=== PATIENT | female | born 1935 | race Caucasian/White ===

== ENCOUNTER → 2017-03-26 | Outpatient (CLI) | payer MEDICARE ==
[~2017-03-26] MED LIST: CEPH500 PO; CHOL10002 PO; CLOP75 PO; CODLIVC PO; CRANASSURE; CYAN100 PO; DOCU100 PO; DONE10 PO; LANS30EC PO; LEVOTHYROXINE; LEVSOD50 PO; OMEP20ER PO; PANT20 PO; THYROID; TRAM50 PO
== END ==
LOC: LAB 11:34
DX: R35.8 Other polyuria (principal)
CPT/HCPCS: 87077; 87086; 87186

== ENCOUNTER 2017-12-18 20:39 | Emergency (ER) | payer MEDICARE ==
[~2017-12-18] VITALS: Ht 160 cm; Wt 52.2 kg
[~2017-12-18 20:39] MED LIST changes: -CLOP75 PO; -DONE10 PO; -PANT20 PO
[2017-12-18] MEDS ORDERED: PANT20 PO (22:00)
[2017-12-18] MEDS ORDERED: CLOP75 PO (22:00)
[2017-12-18] MEDS ORDERED: DONE10 PO (22:00)
== END 2017-12-18 22:08 | disposition home or self-care (01) ==
LOC: ER 20:39
DX: S00.83XA Contusion of other part of head, initial encounter (principal); S40.011A Contusion of right shoulder, initial encounter; S70.01XA Contusion of right hip, initial encounter; W01.198A Fall on same level from slipping, tripping and stumbling with subsequent striking against other object, initial encounter; Z88.8 Allergy status to other drugs, medicaments and biological substances; Z79.899 Other long term (current) drug therapy; E03.9 Hypothyroidism, unspecified
CPT/HCPCS: 36415; 70450; 72125; 73030; 73502; 99284-25

== ENCOUNTER 2018-09-11 11:30 | Emergency (ER) | payer MEDICARE ==
[~2018-09-11] VITALS: Ht 160 cm; Wt 50.8 kg
[~2018-09-11 11:30] MED LIST changes: +CLOP75 PO; +DONE10 PO; +PANT20 PO
[2018-09-11 12:01] LABS: BASOPHILS ABSOLUTE AUTO 0.06 K/mm3 (0.00-0.23); BASOPHILS PERCENT AUTO 1 % (0-2); EOSINOPHILS ABSOLUTE AUTO 0.06 K/mm3 (0.00-0.68); EOSINOPHILS PERCENT AUTO 1 % (0-6); Hematocrit 38.9 % (33.0-51.0); Hemoglobin 12.6 g/dL (11.5-16.0); IMMATURE GRAN ABSOLUTE AUTO 0.03 K/mm3 (0.00-0.10); IMMATURE GRAN PERCENT AUTO 0 % (0-1); LYMPHOCYTES ABSOLUTE AUTO 2.14 K/mm3 (0.84-5.20); LYMPHOCYTES PERCENT AUTO 23 % (21-46); MONOCYTES ABSOLUTE AUTO 0.77 K/mm3 (0.16-1.47); MONOCYTES PERCENT AUTO 8 % (4-13); Mean Corpuscular HGB 32.1 pg (26.0-34.0); Mean Corpuscular HGB Conc 32.4 g/dL (31.5-36.5); Mean Corpuscular Volume 99 fL (80-100); Mean Platelet Volume 10.5 fL (9.1-12.4); NEUTROPHILS ABSOLUTE AUTO 6.14 K/mm3 (1.96-9.15); NEUTROPHILS PERCENT AUTO 67 % (41-73); Platelet Count 190 K/mm3 (150-400); RDW Coefficient Variation 13.5 % (11.7-14.2); RDW Standard Deviation 49.3 fL (35.1-46.3); Red Blood Cell Count 3.93 M/mm3 (3.80-5.20)
[2018-09-11 12:27] LABS: Alanine Aminotransfer (ALT/SGP 12 U/L (12-78); Albumin, Blood 3.7 g/dL (3.4-5.0); Alk Phos 99 U/L (50-136); Anion Gap 6 mmol/L (6-16); Aspartate Aminotrans (AST/SGOT 17 U/L (12-37); Bilirubin, Total 0.8 mg/dL (0.1-1.0); Blood Urea Nitrogen 29 mg/dL (8-24); Bun/Creatinine Ratio 29.1 (12.0-20.0); CO2, Blood 29 mmol/L (21-32); Calcium, Blood 9.2 mg/dL (8.5-10.1); Chloride, Blood 105 mmol/L (98-108); Globulin, Blood 3.7 g/dL (2.2-4.0); Glomerular Filtration Rate 56 (60-); Glucose, Blood 141 mg/dL (70-99); Sodium, Blood 140 mmol/L (136-145); Total Protein, Blood 7.4 g/dL (6.4-8.2); Troponin I <0.015 ng/mL (0.000-0.040)
== END 2018-09-11 15:48 | disposition short-term general hospital (02) ==
LOC: ER 11:30
PROVIDERS: Physician Assistant
DX: R53.81 Other malaise (principal); F03.90 Unspecified dementia, unspecified severity, without behavioral disturbance, psychotic disturbance, mood disturbance, and anxiety; I71.4 Abdominal aortic aneurysm, without rupture; R10.9 Unspecified abdominal pain; Z88.8 Allergy status to other drugs, medicaments and biological substances; Z79.899 Other long term (current) drug therapy
CPT/HCPCS: 36415; 71046; 80053; 84484; 85025; 93005; 93010; 99285-25

== ENCOUNTER 2020-08-08 07:28 | Day surgery (SDC) | payer MEDICARE ==
[~2020-08-08] VITALS: Ht 162.6 cm; Wt 47.1 kg
[~2020-08-08 07:28] MED LIST changes: +EUTHYROX50 MCG PO; -LEVSOD50 PO
[2020-08-08] MEDS ORDERED: Aspir 8181 MG PO (08:05)
[2020-08-08] MEDS ORDERED: DICLOFENAC SOD100 GM TOP (08:07)
[2020-08-08] MEDS ORDERED: Triamcinolone A15 G2 (08:07)
[2020-08-08] MEDS ORDERED: FLUTICASONE PRO16 GM (08:07)
== END 2020-08-08 09:22 | disposition home or self-care (01) ==
LOC: ORSCSDS 07:28
PROVIDERS: Internal Medicine Gastroenterology
PROC: 0DB58ZX Excision of Esophagus, Via Natural or Artificial Opening Endoscopic, Diagnostic (ICD-10-PCS; principal; 2020-08-08 08:30)
PROC: 0D758ZZ Dilation of Esophagus, Via Natural or Artificial Opening Endoscopic (ICD-10-PCS; principal; 2020-08-08 08:30)
DX: R13.10 Dysphagia, unspecified (principal); K20.90 Esophagitis, unspecified without bleeding; K22.2 Esophageal obstruction; K44.9 Diaphragmatic hernia without obstruction or gangrene; Z79.01 Long term (current) use of anticoagulants; Z79.82 Long term (current) use of aspirin; Z79.899 Other long term (current) drug therapy
CPT/HCPCS: 88305; C1726; J0330; J0461; J2405; J2704; J7120

== ENCOUNTER 2020-08-26 03:59 | Observation (INO) | payer MEDICARE ==
[~2020-08-26] VITALS: Ht 147.3 cm; Wt 48.0 kg
[~2020-08-26 03:59] MED LIST changes: +Aspir 8181 MG PO; +DICLOFENAC SOD100 GM TOP; +FLUTICASONE PRO16 GM; +Triamcinolone A15 G2
[2020-08-26 04:15] LABS: Calcium, Ionized (POC) 1.26 mmol/L (1.10-1.46); Chloride (POC) 102 mmol/L (98-108); Creatinine (POC) 1.1 mg/dL (0.6-1.0); Glucose (ISTAT POC) 206 mg/dL (70-99); Hemoglobin (POC) 10.9 g/dL (12.0-16.0); Potassium (POC) 3.1 mmol/L (3.5-5.5); Sodium (POC) 140 mmol/L (135-148); Total CO2 (POC) 28 mmol/L (21-32)
--- NOTE | 2020-08-26 06:44 | NUR ---
ASSUMPTION OF CARE PT ARRIVED TO ICU AT 0630 ON TRANSPORT VENT. UNRESPONSIVE, PUPILS UNEQUAL AND NONREACTIVE. GUERRA PATENT AND DRAINING TO GRAVITY. NO DRIPS RUNNING. PT HAS COMFORT CARE ORDERS.
[2020-08-26] MEDS ORDERED: OMEP20ER (07:34)
[2020-08-26] MEDS ORDERED: TOCO1000 PO (07:35)
[2020-08-26] MEDS ORDERED: CALCIUM 600 +1 EA11 (07:36)
[2020-08-26] MEDS ORDERED: ERGO400 PO (07:36)
[2020-08-26] MEDS ORDERED: CALCIUM 600 +1 EA11 PO (07:37)
[2020-08-26] MEDS ORDERED: BISA5EC PO (07:41)
--- NOTE | 2020-08-26 08:02 | NUR ---
ASSESSMENT- PT WITH EYES CLOSED, PUPILS LARGE, UNEQUAL, NONREACTIVE. NO RESPONSE UPPER EXTREMITIES TO PAINFUL STIMULUS, MOVES LEGS IN RESPONSE TO PAINFUL STIMULUS. ORALLY INTUBATED, TUBE SECURE. LUNGS CLEAR. ORAL SECRETIONS BLOODY-ORAL CARE DONE. TOLERATING VENT SETTINGS, RESPIRATIONS UNLABORED. APICAL REGUALR, PACED. BP STABLE. PIV X 2 INTACT. NO EDEMA. OGT CLAMPED. UO VIA GUERRA. REPOSITIONED. DOES NOT MOVE ARMS-NO RSTRAINTS. MULTIPLE FAMILY AT BEDSIDE. COMFORT CARE STATUS. AWAITING MORE FAMILY BEFORE D/C VENT SUPPORT. CART IN ROOM, EMOTIONAL SUPPORT GIVEN.
--- NOTE | 2020-08-26 09:33 | NUR ---
MULTIPLE FAMILY AT BEDSIDE. PASTORAL CARE AND PALLIATIVE CARE HERE FOR SUPPORT.
--- NOTE | 2020-08-26 10:51 | NUR ---
family at bedside, comfort quilt placed and chaplian in to see them. awaiting family and comfort measures.
--- NOTE | 2020-08-26 12:15 | NUR ---
VS-NORMAL SINUS, BP LOW. MULTIPLE FAMILY HAVE BEEN HERE. FAMILY REQUESTING TO D/C VENT NOW.
--- NOTE | 2020-08-26 12:26 | NUR ---
UPDATE TO DR. WHITING.-OK TO EXTUBATE WHEN FAMILY REQUESTS, HAVE PALLIATIVE CARE RN HERE. PASTORAL CARE HERE NOW. VS UNCHANGED.
--- NOTE | 2020-08-26 12:44 | NUR ---
PT RX WITH PAIN MED AND ATIVAN FOR POSIIBLE PAIN AND SEIZURE. FAMILY AT BEDSIDE. PT EXTUBATED, SOME REPSIRATORY EFFORT. PASTORAL CARE, PALLIATIVE CARE RN HERE.
--- NOTE | 2020-08-26 13:34 | NUR ---
DR GILBERT HERE-UPDATED. PT LANDON OF 1323, NO HEART BEAT, NO RESPIRATIONS. FAMILY AT BEDSIDE.
--- NOTE | 2020-08-26 13:45 | NUR ---
PT WITH FAMILY AT BEDSIDE. EMOTIONAL SUPPORT GIVEN.
--- NOTE | 2020-08-26 14:10 | NUR ---
pt passed peacfully with family at bedside. Quilt in place. plan is [facility] they will have a service. requested quilt be sent.
--- NOTE | 2020-08-26 14:41 | NUR ---
POST MORTEM CARE DONE. CLEARED BY FLATWORK SUPERVISOR. PIV, CATHETER REMOVED. NOT CANDIDATE FOR DONATION. [facility] CALLED.
== END 2020-08-26 13:23 ==
LOC: ER 03:59 → ICUW 04:00
PROVIDERS: Emergency Medicine; ADMIT Family Medicine
DX: S06.5X9A Traumatic subdural hemorrhage with loss of consciousness of unspecified duration, initial encounter (principal); J96.00 Acute respiratory failure, unspecified whether with hypoxia or hypercapnia; E87.6 Hypokalemia; K21.9 Gastro-esophageal reflux disease without esophagitis; G30.9 Alzheimer's disease, unspecified; F02.80 Dementia in other diseases classified elsewhere, unspecified severity, without behavioral disturbance, psychotic disturbance, mood disturbance, and anxiety; Z66 Do not resuscitate; X58.XXXA Exposure to other specified factors, initial encounter; Z95.0 Presence of cardiac pacemaker
CPT/HCPCS: 36415; 51702; 70450; 71045; 72125; 80047; 85014; 93005; 93010; 94002; 96374; 96376; 99285-25; G0378; J2060; J3010